=== PATIENT | female | born 1950 | race African-American/Black ===

== ENCOUNTER 2025-07-01 10:12 | Emergency (ER) | payer MEDICARE, OTHER ==
[~2025-07-01] VITALS: Ht 175.3 cm; Wt 77.1 kg
[2025-07-01 10:15] VITALS: O2SAT 99
[2025-07-01] MEDS ORDERED: *TENECTEPLASE FOR AIS XX SCH (11:07)
[2025-07-01] MEDS: TENECTEPLASE 50MG/VIAL IV ONE (11:07)
[2025-07-01 11:21] LABS: BASOPHILS % 0.4 % (0.0-2.0); EOSINOPHILS % 0.5 % (0.0-5.0); HEMATOCRIT. 39.4 % (36.0-48.0); HEMOGLOBIN. 12.9 g/dL (12.0-16.0); LYMPHOCYTES % 19.7 % (20.0-50.0); MEAN PLATELET VOLUME 11.6 fl (7.4-10.4); MONOCYTES % 5.2 % (2.0-8.0); NEUTROPHILS % 74.2 % (40.0-76.0); PLATELET 129 x1000/uL (130-400); RED BLOOD CELL COUNT 4.27 mill/uL (4.2-5.4); RED CELL DISTRIBUTION WIDTH 14.2 % (11.6-14.6)
[2025-07-01 11:36] LABS: INR 1.0
[2025-07-01 11:37] LABS: CREATININE 1.4 mg/dL (0.6-1.0); TROPONIN I HIGH SENSITIVITY 7 ng/L (3.0-34); UREA NITROGEN BLOOD 10 mg/dL (9-23)
[2025-07-01 11:39] LABS: ASPARTATE AMINOTRANSFERASE 30 IU/L (<34); BILIRUBIN DIRECT 0.4 mg/dL (<=3.0)
[2025-07-01 11:40] LABS: BILIRUBIN TOTAL 1.2 mg/dL (0.1-1.0); PROTEIN TOTAL 6.5 g/dL (6.0-8.3)
[2025-07-01] MEDS: IOHEXOL-350 100 ML BOTTLE ONE (12:18)
[2025-07-01 12:21] VITALS: RESP 15; TEMP 36.8; O2SAT 98
[2025-07-01 12:22] VITALS: BP 151/82; PULSE 58
== END 2025-07-01 12:44 | disposition short-term general hospital (02) ==
LOC: ER 10:44 → CMPBEDREQ 14:11
DX: I63.9 Cerebral infarction, unspecified (principal); I65.22 Occlusion and stenosis of left carotid artery
CPT/HCPCS: 80076; 80048; 80320; 85025; 85610; 85730; 84484; 36415; 71045; 70496; 70498; 70450; 93005; 96374; 99291; 99292; Q9967; J3101; G0480